=== PATIENT | female | born 1995 | race Two or more races ===

== ENCOUNTER 2023-06-21 09:15 | Outpatient (CLI) | payer OTHER | END 2023-06-21 09:20 | disposition home or self-care (01) | LOC: PRENATAL 09:15 | PROVIDERS: ATTEND Obstetrics & Gynecology Maternal & Fetal Medicine | DX: O26.849 Uterine size-date discrepancy, unspecified trimester (principal); O36.8199 Decreased fetal movements, unspecified trimester, other fetus; O36.5990 Maternal care for other known or suspected poor fetal growth, unspecified trimester, not applicable or unspecified; Z3A.37 37 weeks gestation of pregnancy ==

== ENCOUNTER 2023-06-30 08:30 | Inpatient (IN) | payer OTHER ==
[~2023-06-30] VITALS: Ht 152.4 cm; Wt 59.0 kg
[2023-06-30 09:30] LABS: HEMOGLOBIN 10.9 g/dL (12.0-15.00); MEAN CELL VOLUME 84.3 fL (80.00-100.00); MEAN CORPUSCULAR HGB CONC 33.2 g/dl (32.0-36.0); PLATELET COUNT 275 K/uL (150-450); RED BLOOD COUNT 3.91 M/uL (4.00-6.00); RED CELL DISTRIBUTION WIDTH 15.4 % (11.5-14.5)
[2023-06-30 09:54] LABS: PH,URINE 6.5 (5.0-8.0); URINE APPEARANCE Clear; URINE BILIRRUBIN Negative (NEGATIVE); URINE BLOOD Negative; URINE COLOR Yellow; URINE GLUCOSE Negative (NEGATIVE); URINE LEUKOCYTE Negative; URINE NITRATE Negative; URINE PROTEIN Negative (NEGATIVE); URINE UROBILINOGEN 0.2 E.U./dl
[2023-06-30 09:56] LABS: INR 0.96; PROTHROMBIN TIME 10.1 SECONDS (9.0-11.5)
[2023-06-30 10:12] LABS: URINE BACTERIA 16.3 uL (0.0-1933); URINE EPITHELIAL CELLS 1.6 uL (0.0-38.8); URINE WBC 3.5 uL (0.0-23.2)
[2023-06-30 10:25] LABS: URINE RBC 0.1 uL (0.0-20.8)
[2023-06-30 21:42] LABS: ABG PH 7.311 (7.35-7.45); ABG PO2 27.7 mmHg (80-100); ABG pCO2 45.8 mmHg (35-45); BASE EXCESS -3.8 mmol/l; BICARBONATE 22.6 mmol/l (23-25); SaO2 44.1 %
[2023-06-30 21:43] LABS: o2 21 %
[2023-06-30 23:26] LABS: HEMATOCRIT 32.2 % (36.0-45.00); HEMOGLOBIN 10.6 g/dL (12.0-15.00); MEAN CORPUSCULAR HEMOGLOBIN 28.1 pg (27.00-32.0); PLATELET COUNT 270 K/uL (150-450); RED BLOOD COUNT 3.78 M/uL (4.00-6.00); RED CELL DISTRIBUTION WIDTH 15.2 % (11.5-14.5)
== END 2023-07-02 14:03 | disposition home or self-care (01) | DRG 807 ==
LOC: LDR 08:30 → OB/GYN 19:26
PROVIDERS: ADMIT Obstetrics & Gynecology; ATTEND Obstetrics & Gynecology
PROC: 10E0XZZ Delivery of Products of Conception, External Approach (ICD-10-PCS; principal; 2023-06-30)
PROC: 0UQG7ZZ Repair Vagina, Via Natural or Artificial Opening (ICD-10-PCS; 2023-06-30)
PROC: 4A1HXCZ Monitoring of Products of Conception, Cardiac Rate, External Approach (ICD-10-PCS; 2023-06-30)
DX: O71.4 Obstetric high vaginal laceration alone (principal); Z37.0 Single live birth; Z3A.39 39 weeks gestation of pregnancy; Z20.822 Contact with and (suspected) exposure to COVID-19

== ENCOUNTER → 2024-08-05 | Emergency (ER) | payer OTHER ==
[~2024-08-05] VITALS: Ht 152.4 cm; Wt 44.9 kg
== END | disposition left against medical advice (07) ==
LOC: ER 14:15
DX: Z53.21 Procedure and treatment not carried out due to patient leaving prior to being seen by health care provider (principal)